=== PATIENT | female | born 1955 | race Caucasian/White ===

== ENCOUNTER → 2018-05-14 | Outpatient (CLI) | payer OTHER ==
[~2018-05-14] MED LIST: CELEBREX200 MG PO; ENBREL50 MG/1 M1 INJ; ESTRACE42.5 GM TOP; LISINOPRIL5 MG PO; METHOTREXATE2.5 MG PO; PLAQUENIL200 MG PO; PREDNISONE5 M1 PO
--- NOTE | 2018-05-14 09:03 | Diagnostic Imaging Report ---
EXAM: Right upper quadrant abdominal ultrasound INDICATION: Right upper quadrant pain COMPARISON: None. TECHNIQUE: Transverse and longitudinal images of the right upper quadrant abdomen were obtained FINDINGS: Liver: Size: 12.1 cm in the right midclavicular line, normal Appearance: Normal echogenicity, smooth contour Mass: No focal masses Gallbladder: No evidence of distention, pericholecystic fluid, wall thickening, stone, or reported sonographic Thomas's sign. Gallbladder wall measures 0.2 cm. Bile Ducts: Intrahepatic Ducts: No dilatation Extrahepatic Ducts: Common bile duct measures 0.2 cm, no dilatation Pancreas: Visualized portions of the pancreatic head, neck and proximal body are normal. Kidney: The right kidney measures 10.1 cm without evidence of hydronephrosis or stone. Incidental hypoechoic lesion with central hyperechoic foci in the upper pole of the right kidney, incompletely evaluated. Vessels: Aorta: Visualized portions are normal Inferior Vena Cava: Visualized portions are normal Main Portal Vein: 0.9 cm, normal size with hepatopetal flow. Free Fluid: No ascites or pleural effusion IMPRESSION: No sonographic evidence of cholelithiasis or cholecystitis. Incompletely evaluated hypoechoic lesion with central hyperechoic foci in the upper pole of the right kidney. A renal ultrasound is suggested for further valuation. Signed by: Dr. Garret Acosta MD on 05/14/2018 8:59 AM
== END ==
LOC: US 07:19
PROVIDERS: ATTEND Family Medicine
DX: R10.9 Unspecified abdominal pain (principal)
CPT/HCPCS: 76705

== ENCOUNTER → 2018-05-20 | Outpatient (CLI) | payer OTHER ==
--- NOTE | 2018-05-20 18:43 | Diagnostic Imaging Report ---
EXAM: RENAL ULTRASOUND Date: 05/20/2018 5:00 PM Indication: Comparison: None Technique: Sonographic evaluation of the kidneys. Color doppler was utilized to supplement evaluation. FINDINGS: KIDNEYS: Right: Measures 11.2 cm in length. No hydronephrosis. There is a 2 cm hypoechoic lesion inferior right kidney, not distinctly simple cyst. 1.1 cm probable simple cyst present mid right kidney. Renal cortex measures 1.0 cm. Left: Measures 10.7 cm in length. No hydronephrosis. 1.4 cm simple appearing cyst mid to inferior left kidney. Renal cortex measures 1.0 cm. URINARY BLADDER: Grossly unremarkable. No ureteral jets visualized. OTHER: None. IMPRESSION: 2 cm hypoechoic lesion inferior right kidney, not distinctly simple cyst. Outpatient Renal mass CT or MRI recommended. Other simple appearing cysts as above. Signed by: Dr. Zia Giron MD on 05/20/2018 6:39 PM
== END ==
LOC: US 16:49
PROVIDERS: ATTEND Family Medicine
DX: N28.9 Disorder of kidney and ureter, unspecified (principal)
CPT/HCPCS: 76770; 93976

== ENCOUNTER → 2018-06-09 | Outpatient (CLI) | payer OTHER ==
[~2018-06-09] MED LIST changes: +GADOBENATE DIMEGLUMINE 1 ML IV ONE
[2018-06-09 09:01] LABS: BLOOD UREA NITROGEN 11 mg/dL (7-26); BUN/CREATININE RATIO 13 (6-25); CREATININE, SERUM 0.87 mg/dL (0.57-1.11); EST GLOMERULAR FILTRATION RATE > 60 ML/MIN (60-)
--- NOTE | 2018-06-09 17:20 | Diagnostic Imaging Report ---
EXAM: MR Abdomen WITHOUT and WITH Contrast INDICATION: Kidney lesion. COMPARISON: ABDOMINAL ULTRASOUND 05/14/2018. Renal Doppler 05/20/2017. TECHNIQUE: Multiplanar and multisequence imaging was performed of the abdomen without and with contrast. T1-weighted, T2-weighted images, T1-weighted in and [id number], and Diffusion weighted images. Dynamic, post gadolinium T1-weighted spoiled gradient echo scans. IV Contrast: 13 mL of MultiHance gadolinium Oral Contrast: None Medications: None COMPLICATIONS: None FINDINGS: LOWER THORAX: Unremarkable. HEPATOBILIARY: No focal hepatic lesions. No biliary ductal dilation. GALLBLADDER: No radio-opaque stones or sludge. No wall thickening. SPLEEN: No splenomegaly. PANCREAS: No focal masses or ductal dilatation. ADRENALS: No adrenal nodules KIDNEYS/URETERS: Kidneys enhance symmetrically. No hydronephrosis. No cystic or solid mass lesions. No stones. GI TRACT: No abnormal distention, wall thickening, or evidence of bowel obstruction. Appendix is not visualized. LYMPH NODES: No lymphadenopathy. VESSELS: Unremarkable. PERITONEUM / RETROPERITONEUM: No free air or fluid. BONES: Unremarkable. SOFT TISSUES: Bilateral breast implants. IMPRESSION: 1. Normal abdomen. 2. No renal lesions. Signed by: Dr. Sharad Knight M.D. on 06/09/2018 5:17 PM
== END ==
LOC: MRI 08:09
PROVIDERS: ATTEND Family Medicine
DX: R10.9 Unspecified abdominal pain (principal); N28.9 Disorder of kidney and ureter, unspecified; I10 Essential (primary) hypertension; M06.042 Rheumatoid arthritis without rheumatoid factor, left hand; M06.041 Rheumatoid arthritis without rheumatoid factor, right hand; Z79.899 Other long term (current) drug therapy
CPT/HCPCS: 36415; 74183; 82565; 84520

== ENCOUNTER → 2018-06-16 | Day surgery (SDC) | payer OTHER ==
[~2018-06-16] MED LIST changes: +FENTANYL CITRATE/PF 100MCG/2 ML INJ ONE; -GADOBENATE DIMEGLUMINE 1 ML IV ONE; +HYDROXYCHLOROQ200 MG PO; +HYOSCYAMINE SULFATE 0.5 MG/ML INJ ONE; +LEXAPRO10 MG PO; +LISINOPRIL10 MG PO; +MIDAZOLAM HCL 2 MG/2 ML VIAL ONE; +PANTOPRAZOLE SO40 MG PO; +PROPOFOL IV EMULSION 10 MG/ML 50 ML VIAL ONE; +SULINDAC200 MG PO; +ZYRTEC-D TABLE1 EACH PO; +[UNRECOGNIZED DRUG - OTHER] PO
--- OUTSIDE RECORDS SUMMARY | 2018-06-16 07:47 | XMS REPORT ---
Author Author [facility] Address Unknown Phone Unavailable Care Team Providers Care Field Machinist Name Role Phone ALVARADO ALBA Unavailable Unavailable Problems This patient has no known problems. Allergies, Adverse Reactions, Alerts This patient has no known allergies or adverse reactions. Medications This patient has no known medications. Results Test Description Test Time Test Comments Text Results Atomic Results Result Comments MRI ABDOMEN WOW 2018-06-09 17:10:00 [place] [address] Patient Name: LISA DE LEON MR #: [id number] : 1955 Age/Sex: 62/F Req #: [id number] Adm Physician: Ordered by: ALVARADO ALBA DO Report #: [id number] Location: MRI Room/Bed: Procedure: [id number] MRI/MRI ABDOMEN WOW Exam Date: 06/09/18 Exam Time: 918 REPORT STATUS: Signed EXAM: MR Abdomen WITHOUT and WITH Contrast INDICATION: K idney lesion. COMPARISON: ABDOMINAL ULTRASOUND 05/14/2018. Renal Doppler 05/20/2017. TECHNIQUE: Multiplanar and multisequence imaging was performed of the abdomen without and with contrast. T1-weighted, T2-weighted images, T1- weighted in and [id number], and Diffusion weighted images. Dynamic, post gadolinium T1-weighted spoiled gradient echo scans. IV Contrast: 13 mL of MultiHance gadolinium Oral Contrast: None Medications: None COMPLICATIONS: None FINDINGS: LOWER THORAX: Unremarkable. HEPATOBILIARY: No focal hepatic lesions. No biliary ductal dilation. GALLBLADDER: No radio-opaque stones or sludge. No wall thickening. SPLEEN: No splenomegaly. PANCREAS: No focal masses or ductal dilatation. ADRENALS: No adrenal nodules KIDNEYS/URETERS: Kidneys enhance symmetrically. No hydronephrosis. No cystic or solid mass lesions. No stones. GI TRACT: No abnormal distention, wall thickening, or evidence of bowel obstruction. Appendix is not visualized. LYMPH NODES: No lymphadenopathy. VESSELS: Unremarkable. PERITONEUM / RETROPERITONEUM: No free air or fluid. BONES: Unremarkable. SOFT TISSUES: Bilateral breast implants. IMPRESSION: 1. Normal abdomen. 2. No renal lesions. Signed by: Dr. Sneha Knight M.D. on 06/09/2018 5:17 PM Dictated By: SNEHA KNIGHT MD 16 Transcribed By: DICK on 06/09/181716 COPY TO: ALVARADO ALBA DO RENAL/LIVER DOPPLER [facility] 2018-05-20 18:38:00 [place] [address] Patient Name: LISA DE LEON MR #: [id number] : 1955 Age/Sex: 62/F Req #: [id number] Physician: Ordered by: Report #: [id number] Location: Room/Bed: Procedure: Exam Date: 05/20/18 Exam Time: 1706 REPORT STATUS: Cancelled EXAM: RENAL ULTRASOUND Date: 05/20/2018 5:00 PM Indication: Comparison: None Technique: Sonographic evaluation of the kidneys. Color doppler was utilized to supplement evaluation. FINDINGS: KIDNEYS: Right: Measures 11.2 cm in length. No hydronephrosis. There is a 2 cm hypoechoic lesion inferior right kidney, not distinctly simple cyst. 1.1 cm probable simple cyst present mid right kidney. Renal cortex measures 1.0 cm. Left: Measures 10.7 cm in length. No hydronephrosis. 1.4 cm simple appearing cyst mid to inferior left kidney. Renal cortex measures 1.0 cm. URINARY BLADDER: Grossly unremarkable. No ureteral jets visualized. OTHER: None. IMPRESSION: 2 cm hypoechoic lesion inferior right kidney, not distinctly simple cyst. Outpatient Renal mass CT or MRI recommended. Other simple appearing cysts as above. Signed by: Dr. Carrie Giron MD on 05/20/2018 6:39 PM Dictated By: CARRIE GIRON MD [id number] COPY TO: US RENAL RETROPERITONEAL COMP 2018-05-20 18:38:00 [place] [address] Patient Name: LISA DE LEON MR #: [id number] : 1955 Age/Sex: 62/F Req #: [id number] Adm Physician: Ordered by: ALVARADO ALBA DO Report #: [id number] Location: Room/Bed: Procedure: [id number] US/US RENAL RETROPERITONEAL COMP Exam Date: 05/21/18 Exam Time: 1707 REPORT STATUS: Signed EXAM: RENAL ULTRASOUND Date: 05/20/2018 5:00 PM Indication: Comparison: None Technique: Sonographic evaluation of the kidneys. Color doppler was utilized to supplement evaluation. FINDINGS: KIDNEYS: Right: Measures 11.2 cm in length. No hydronephrosis. There is a 2 cm hypoechoic lesion inferior right kidney, not distinctly simple cyst. 1.1 cm probable simple cyst present mid right kidney. Renal cortex measures 1.0 cm. Left: Measures 10.7 cm in length. No hydronephrosis. 1.4 cm simple appearing cyst mid to inferior left kidney. Renal cortex measures 1.0 cm. URINARY BLADDER: Grossly unremarkable. No ureteral jets visualized. OTHER: None. IMPRESSION: 2 cm hypoechoic lesion inferior right kidney, not distinctly simple cyst. Outpatient Renal mass CT or MRI recommended. Other simple appearing cysts as above. Signed by: Dr. Carrie Giron MD on 05/20/2018 6:39 PM Dictated By: CARRIE GIRON MD 17 Transcribed By: DICK on 05/21/181317 COPY TO: ALVARADO ALBA DO US ABDOMEN LIMITED 2018-05-14 08:50:00 [place] [address] Patient Name: LOUIE DE LEON MR #: [id number] : 1955 Age/Sex: 62/F Req #: [id number] Adm Physician: Ordered by: ALVARADO ALBA DO Report #: [id number] Location: Room/Bed: Procedure: [id number] US/US ABDOMEN LIMITED Exam Date: 05/14/18 Exam Time: 0806 REPORT STATUS: Signed EXAM: Right upper quadrant abdominal ultrasound INDICA TION: Right upper quadrant pain COMPARISON: None. TECHNIQUE: Transverse and longitudinal images of the right upper quadrant abdomen were obtained FINDINGS: Liver: Size: 12.1 cm in the right midclavicular line, normal Appearance: Normal echogenicity, smooth contour Mass: No focal masses Gallbladder: No evidence of distention, pericholecystic fluid, wall thickening, stone, or reported sonographic Thomas's sign. Gallbladder wall measures 0.2 cm. Bile Ducts: Intrahepatic Ducts: No dilatation Extrahepatic Ducts: Common bile duct measures 0.2 cm, no dilatation Pancreas: Visualized portions of the pancreatic head, neck and proximal body are normal. Kidney: The right kidney measures 10.1 cm without evidence of hydronephrosis or stone. Incidental hypoechoic lesion with central hyperechoic foci in the upper pole of the right kidney, incompletely evaluated. Vessels: Aorta: Visualized portions are normal Inferior Vena Cava: Visua lized portions are normal Main Portal Vein: 0.9 cm, normal size with hepatopetal flow. Free Fluid: No ascites or pleural effusion IMPRESSION: No sonographic evidence of cholelithiasis or cholecystitis. Incompletely evaluated hypoechoic lesion with central hyperechoic foci in the upper pole of the right kidney. A renal ultrasound is suggested for further valuation. Signed by: Dr. Renee Nascimento MD on 05/14/2018 8:59 AM Dictated By: RENEE NASCIMENTO MD 8 Transcribed By: DICK on 05/14/18858 COPY TO: ALVARADO ALBA DO
[2018-06-16 11:42] VITALS: BP 119/79
--- NOTE | 2018-06-16 18:35 | Operative Report ---
DATE OF PROCEDURE: 06/16/2018 SURGEON: Russ Victoria MD PROCEDURES: EGD with biopsies and a colonoscopy with polypectomy. INDICATIONS FOR EGD: Upper abdominal pain, nausea. INDICATIONS FOR COLONOSCOPY: Colorectal cancer screening. MEDICATION: The patient was done under MAC. Please see anesthesiologist's note. PROCEDURE IN DETAIL: With the patient in the left lateral decubitus position, a flexible fiberoptic Olympus gastroscope was introduced into the esophagus under direct visualization without any difficulty. There was some patchy erythema noted in the distal esophagus. A minute nodule was noted at the GE junction that was biopsied. The scope was then advanced with ease into the stomach traversing a small sliding hiatal hernia. Mucosa overlying the antrum and the body revealed some diffuse erythema, low grade to moderate edema and biopsies were obtained and sent to stain for H pylori. Pylorus was of normal contour and shape, and was intubated with ease and the scope was advanced all the way up to the 2nd portion of the duodenum. Biopsies were obtained from the proximal 2nd portion and the duodenal bulb to rule out sprue. The scope was then withdrawn back into the stomach and retroflexed. Mucosa overlying the fundus and cardia appeared to be within normal limits. The scope was then straightened out and was subsequently withdrawn. The patient tolerated the procedure well. IMPRESSION: 1. Mild distal esophagitis. 2. Minute nodule at GE junction biopsied. 3. Small sliding hiatal hernia. 4. Gastritis biopsied. Biopsies sent to stain for Helicobacter pylori. 5. Rule out sprue. PLAN: Follow up histology. Continue Protonix 40 mg one p.o. q.a.m. a.c. The patient was then turned around. After adequate lubrication of the anal canal, a flexible fiberoptic Olympus colonoscope was inserted into the rectum with ease and advanced all the way to the cecum. It was then withdrawn slowly. Mucosa overlying the cecum, ascending colon, transverse colon, descending colon appeared to be within normal limits. One polyp was hot biopsied from the sigmoid colon. The rectum appeared to be within normal limits. The scope was then retroflexed into the distal rectum and moderate-sized internal hemorrhoids were noted, none of which was actively bleeding. The scope was then straightened out and it was subsequently withdrawn. The patient tolerated the procedure well. IMPRESSION: 1. Sigmoid colon polyp hot biopsied. 2. Internal hemorrhoids, none actively bleeding. PLAN: Follow up histology. Initiate high-fiber low-fat diet. Initiate high-fiber supplement. The patient might benefit from a followup colonoscopy in 3-5 years. MD SILKE Lin/JAMISON /[id number] cc: MD Romaine Lin DO
== END | disposition home or self-care (01) ==
LOC: OR 07:45
PROVIDERS: ATTEND Internal Medicine Gastroenterology
DX: Z12.11 Encounter for screening for malignant neoplasm of colon (principal); K29.70 Gastritis, unspecified, without bleeding; D64.9 Anemia, unspecified; R11.0 Nausea; I10 Essential (primary) hypertension; M06.9 Rheumatoid arthritis, unspecified; R10.13 Epigastric pain; Z79.1 Long term (current) use of non-steroidal anti-inflammatories (NSAID); D50.8 Other iron deficiency anemias; Z88.8 Allergy status to other drugs, medicaments and biological substances; K20.9 Esophagitis, unspecified; K44.9 Diaphragmatic hernia without obstruction or gangrene; K63.5 Polyp of colon; K64.8 Other hemorrhoids
CPT/HCPCS: 43239; 45384; 93005; J1980; J2250; J2704; 45378

== ENCOUNTER → 2022-08-30 | Outpatient (CLI) | payer MEDICARE ==
[~2022-08-30] MED LIST changes: -FENTANYL CITRATE/PF 100MCG/2 ML INJ ONE; -HYOSCYAMINE SULFATE 0.5 MG/ML INJ ONE; -MIDAZOLAM HCL 2 MG/2 ML VIAL ONE; -PROPOFOL IV EMULSION 10 MG/ML 50 ML VIAL ONE
== END ==
LOC: MRI 07:14
PROVIDERS: ATTEND Family Medicine
DX: M47.816 Spondylosis without myelopathy or radiculopathy, lumbar region (principal); R29.898 Other symptoms and signs involving the musculoskeletal system; R26.81 Unsteadiness on feet; M54.17 Radiculopathy, lumbosacral region; M62.838 Other muscle spasm
CPT/HCPCS: 72148

== ENCOUNTER → 2024-08-24 | Outpatient (REF) | payer MEDICARE | LOC: MRI 09:37 | PROVIDERS: ATTEND Family Medicine | DX: M51.369 Other intervertebral disc degeneration, lumbar region without mention of lumbar back pain or lower extremity pain (principal); M51.26 Other intervertebral disc displacement, lumbar region; M47.816 Spondylosis without myelopathy or radiculopathy, lumbar region | CPT/HCPCS: 72148 ==